=== PATIENT | female | born 1995 | race Caucasian/White ===

== ENCOUNTER 2019-12-17 05:04 | Emergency (ER) | payer MEDICAID, SELFPAY ==
--- NOTE | 2019-12-17 05:09 | ED_ITS ---
HPI - SOB/Dyspnea General Stated Complaint: SOB Time Seen by Provider: 12/17/19 05:09 Source: patient Mode of arrival: ambulatory Limitations: no limitations History of Present Illness HPI Narrative: Patient woke up with shortness of breath and headache MD elicited complaint: shortness of breath Severity: mild Related Data Allergies Allergy/AdvReac Type Severity Reaction Status Date / Time pollen extracts [POLLEN] Allergy Intermediate SNEEZING Unverified 10/25/19 16:55 PEPPERS Allergy Severe ANAPHYLAXIS Uncoded 10/25/19 16:55 SUNFLOWERS Allergy Intermediate TEARY EYES Uncoded 10/25/19 16:55 Review of Systems Constitutional: Constitutional: Reports no additional constitutional complaints Eyes: Eyes: Reports no additional eye complaints ENT: Denies dizziness Cardiovascular: Cardiovascular: Reports no additional cardiovascular complaints Respiratory: Respiratory: Reports as per HPI Gastrointestinal: Gastrointestinal: Reports no additional gastrointestinal complaints Genitourinary: Genitourinary: Reports no additional female genitourinary complaints Musculoskeletal: Musculoskeletal: Reports no additional musculoskeletal complaints Integumentary/Breasts: Skin/Breast: Denies rash Neurologic: Reports system reviewed and no additional complaints, except as documented, Denies dizziness and Denies Sensory deficit (Neuro) Psychiatric: Psychiatric: Denies anxiety [facility] Past Medical History Medical History (Updated 12/17/19 @ 06:25 by Anderson Nj MD) Asthma Social History Social History Advance Directives: Yes Advance Directives Information Provided: Yes Advance Directives on File: No Physical Exam Vital Signs: Vital Signs: Last Vital Signs Temp 98.0 F 12/17/19 05:16 Pulse 73 12/17/19 05:16 Resp 16 12/17/19 05:16 BP 134/76 12/17/19 05:16 Pulse Ox 100 12/17/19 05:16 Body Mass Index 24.4 Const: General: healthy appearing Nutritional Appearance: average body habitus Orientation/consciousness: oriented to person and patient oriented x3 Limitations: no limitations HENMT: Other: optic disks normal Head: Yes normal to inspection Ears: external ears normal General nose exam: Normal external nose present Mouth: Normal oral and palatal mucosa present and oropharynx normal Throat: Yes posterior oropharynx normal Eyes: General: appearance normal, both eyes and all related structures Neck: Other: supple Neck: Yes normal visual inspection Chest: Chest palpation & inspection: normal inspection of the chest Resp: Auscultation: clear to auscultation bilaterally Cardio: Jugular venous distension: no JVD Rate: regular rate Rhythm: regular rhythm Heart sounds: S1 normal heart sound present and S2 normal heart sound present GI: Inspection: Yes normal to inspection Palpation (GI): Soft to palpation, nontender and No hepatosplenomegaly present Auscultation: normal bowel sounds : General: Yes no CVA tenderness Back/Spine/Pelvis: Back: no CVA tenderness Skin: General skin exam: no rashes or lesions noted Neuro: General: oriented to person and patient oriented x3 Cranial nerves: Yes CN's II-XII intact bilaterally Motor exam (neuro): 5/5 motor strength present throughout Sensory Exam: No Sensory deficit (Neuro) Extrem: General: Yes normal to inspection Psych: Appearance: grossly normal Course Course Course Narrative: patient with cough and nasal congestion. Will check COVID and glucose as patient having blurred vision with her headache MDM - SOB/Dyspnea MDM Narrative Medical decision making narrative: patient appear comfortable, not hypoxic will go home Lab Data Labs: Lab Results 12/17/19 Range/Units 05:32 POC Glucose 81 (60-115) mg/dL Discharge Plan Discharge Clinical Impression: COVID-19 Upper respiratory infection Qualifiers: URI type: unspecified viral URI Qualified Code(s): J06.9 - Acute upper respiratory infection, unspecified Headache Qualifiers: Headache type: unspecified Headache chronicity pattern: acute headache Intractability: not intractable Qualified Code(s): R51.9 - Headache, unspecified Patient Disposition: Home, Self-Care Instructions: COVID-19 (Coronavirus Disease 2019) (ED) Referrals: Physician,Unknown [Primary Care Provider] - 2 days
[2019-12-17 05:16] VITALS: BP 134/76; PULSE 73; RESP 16; TEMP 36.7; O2SAT 100; BMI 24.4
[2019-12-17] MEDS: Acetaminophen 325 MG TABLET 975 MG PO (05:34)
--- NOTE | 2019-12-17 05:37 | PC.NURSE ---
POC 81 mg/dl. Pt medicated for 8/10 pain to head with Tylenol. Covid swab obtained and sent. Continue to monitor.
[2019-12-17 05:42] LABS: Glucose, Whole Blood 81 mg/dL (60-115)
[2019-12-17 06:51] VITALS: BP 114/67; PULSE 68; RESP 16; O2SAT 100
== END 2019-12-17 06:51 | disposition home or self-care (01) ==
PROVIDERS: Emergency Provider Emergency Medicine
DX: U07.1 COVID-19 (principal); J06.9 Acute upper respiratory infection, unspecified; R51.9 Headache, unspecified; R06.00 Dyspnea, unspecified
CPT/HCPCS: 82947; 99283; U0003

== ENCOUNTER 2020-03-27 10:22 | Emergency (ER) | payer MEDICAID, SELFPAY ==
--- NOTE | ~2020-03-27 | US_ITS ---
EXAMINATION: US RETROPERITONEAL LIMITED (RENAL ONLY) CLINICAL INFORMATION: Bilateral flank pain. COMPARISON: CT of November 24, 2012 TECHNIQUE: Bilateral renal ultrasound FINDINGS: RIGHT KIDNEY: 11.0 x 4.8 x 4.8 cm (SAG x AP x TRV). The kidney is normal in size, contour, and echogenicity. Renal cortical thickness is normal. There is a 6 mm nonobstructing calculus within the midpole laterally. No hydronephrosis. LEFT KIDNEY: 12.3 x 6.3 x 5.3 cm (SAG x AP x TRV). The kidney is normal in size, contour, and echogenicity. Renal cortical thickness is normal. No calculi or focal parenchymal lesions. No hydronephrosis. US/US renal BI IMPRESSION: Nonobstructing 6 mm calculus within the right kidney. No evidence of obstructive uropathy.
[2020-03-27 11:08] VITALS: BP 154/75; PULSE 80; RESP 16; TEMP 36.6; O2SAT 100; BMI 25.6
--- NOTE | 2020-03-27 11:14 | ED.FEMALEGU ---
HPI - Female Genitourinary General Chief complaint: Urogenital-Female Stated complaint: implant in arm, tender breasts,bloated Time Seen by Provider: 03/27/20 11:07 Source: patient Mode of arrival: ambulatory Limitations: no limitations History of Present Illness HPI Narrative: 24 yo female with implanon x 1 year, had unprotected sex 4 weeks ago on 03/14 had full workup with [facility] negative other than yeast infection which she took diflucan for, c/o urinary frequency, bilateral flank pain and tender breasts - worried she is MD elicited complaint: dysuria, flank pain and other (tender breasts) Pertinent past history: other (implanon x 1 year) Onset (ago): day(s) (few) Location of symptoms: flank Severity: moderate Female Urogenital Radiation: Non-Radiating Quality of pain: cramping Consistency: constant Vaginal discharge: none Vaginal bleeding: none Urinary symptoms: Dysuria and Urgency Exacerbating factors: urination Relieving factors: none Associated symptoms: other (tender breasts, flank pain) Treatment prior to arrival: none Sexual activity: Yes Patient : No Possible : at home test negative Related Data Previous Rx's Medication Instructions Recorded cyclobenzaprine 10 mg PO TID PRN #14 tab 03/27/20 ibuprofen 600 mg PO Q6H PRN #30 tab 03/27/20 ondansetron 4 mg PO Q8H PRN #20 tab 03/27/20 Allergies Allergy/AdvReac Type Severity Reaction Status Date / Time pollen extracts [POLLEN] Allergy Intermediate SNEEZING Unverified 10/25/19 16:55 PEPPERS Allergy Severe ANAPHYLAXIS Uncoded 10/25/19 16:55 SUNFLOWERS Allergy Intermediate TEARY EYES Uncoded 10/25/19 16:55 Review of Systems Review of Systems: Constitutional : No Fever, No Chills ENT/Mouth : No sore throat Eyes: No Eye Pain, No Swelling, No Redness Cardiovascular : No Chest Pain, No SOB Respiratory : No Cough, No Sputum, No Wheezing Gastrointestinal : no Nausea, positive Vomiting, No Diarrhea, positive abdominal pain Genitourinary : positive Dysuria, positive urinary frequency, no Hematuria, positive Flank Pain, no hesitancy, positive breast tenderness Musculoskeletal : No joint pain, No Myalgias Skin : No Skin Lesions, No rash Neuro : No Weakness, No Numbness, No Headache Psych : No Anxiety/Panic, No Depression Heme/Lymph: No Bruising, No Lymphadenopathy Endocrine : No Polyuria, No Polydipsia All other systems reviewed and are negative PMFSH Past Medical History Attestation statement: The following information was validated with the patient. Medical History (Updated 03/27/20 @ 13:43 by Mirna Watters DO) ADHD Asthma Bacterial vaginosis Chlamydia Kidney stones Ovarian cyst PTSD (post-traumatic stress disorder) Yeast infection Social History Social History (Updated 03/27/20 @ 11:18 by Mirna Watters DO) Smoking Status: Smoker, status unknown Smoked in Last 30 Days: No Use of substances other than those prescribed or required for medical reasons: No Advance Directives: No Advance Directives Information Provided: Yes Physical Exam Vital Signs: Vital Signs: Last Vital Signs Temp 97.8 F 03/27/20 11:08 Pulse 80 03/27/20 11:08 Resp 16 03/27/20 11:08 BP 154/75 H 03/27/20 11:08 Pulse Ox 100 03/27/20 11:08 Body Mass Index 25.6 Appearance: Alert. Oriented X3. No acute distress. Eyes: Pupils equal, round and reactive to light. ENT: Pharynx normal. Neck: Normal inspection. Neck supple. CVS: Normal heart rate and rhythm. Pulses normal. Respiratory: No respiratory distress. Breath sounds normal. Abdomen: Soft and nontender. Back: bilateral mild CVA ttp Skin: Skin warm and dry. Normal skin color. Normal skin turgor. Extremities: No lower extremity edema. No calf ttp Neuro: Oriented X 3. No motor deficit. No sensory deficit. Course Course Course Narrative: negative workup - no hematuria no hydro doubt ureterolithiasis MDM - Female Genitourinary MDM Narrative Medical decision making narrative: 24 yo female with implanon x 1 year, had unprotected sex 4 weeks ago already had her [employer] workup but c/o dysuria, flank pain but no n/v fevers and her breasts are tender - will obtain UA, hcg, US of kidneys to evaluate for renal colic Lab Data Labs: Lab Results 03/27/20 03/27/20 Range/Units 11:37 11:55 Beta HCG, Quant < 2 mIU/mL Urine Color YELLOW Urine Appearance CLOUDY Urine pH 7.0 (5.0-8.0) Ur Specific [place] 1.025 (1.005-1.025) Urine Protein NEG (NEG-TRACE) MG/DL Urine Glucose (UA) NEG (NEG) MG/DL Urine Ketones NEG (NEG) MG/DL Urine Blood NEG (NEG) Urine Nitrite NEG (NEG) Ur Leukocyte Esterase NEG (NEG) Discharge Plan Discharge Clinical Impression: Renal calculus, right Patient Disposition: Home, Self-Care Instructions: Kidney Stones (ED) Additional Instructions: return to ED for any worsening symptoms or concerns Prescriptions: New cyclobenzaprine 10 mg tablet 10 mg PO TID PRN (Reason: muscle spasm) Qty: 14 RF: 0 ibuprofen 600 mg tablet 600 mg PO Q6H PRN (Reason: pain) Qty: 30 RF: 0 ondansetron 4 mg tablet,disintegrating 4 mg PO Q8H PRN (Reason: nausea and vomiting) Qty: 20 RF: 0 Referrals: [facility] [Primary Care Provider] - 2 days (if not better) Stand Alone Forms: Work/School Release
[2020-03-27 11:51] LABS: Appearance Urine CLOUDY; Color Urine YELLOW; Glucose Urine UA NEG (NEG); Leukocyte Esterase Urine NEG (NEG); Nitrite Urine NEG (NEG); Specific Gravity - Urine 1.025 (1.005-1.025); Urine Blood NEG (NEG); Urine Ketones NEG (NEG); Urine Protein NEG (NEG-TRACE)
[2020-03-27 13:09] LABS: HCG Quantitative < 2 mIU/mL
== END 2020-03-27 14:19 | disposition home or self-care (01) ==
PROVIDERS: Emergency Provider Emergency Medicine
DX: N20.0 Calculus of kidney (principal); Z87.442 Personal history of urinary calculi
CPT/HCPCS: 36415; 76775; 81003; 84702; 99283; 99284